=== PATIENT | male | born 1960 | race African-American/Black ===

== ENCOUNTER 2016-10-25 10:06 | Emergency (ER) | payer OTHER, SELFPAY ==
[2016-10-25] MEDS ORDERED: Bacitracin Zinc 1 Packet ONE (10:47)
[2016-10-25] MEDS ORDERED: Sulfameth/Trimethoprim DS 800-160mg TAB ONE (10:49)
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
--- NOTE | 2016-10-25 12:18 | RAD ---
RIGHT THIRD FINGER: Date: 10/25/16 FINDINGS: No fracture or dislocation seen. The joints appear intact. No opaque foreign body was evident. IMPRESSION: No acute findings. POS: H
== END 2016-10-25 11:49 | disposition home or self-care (01) ==
LOC: BURERS 10:06
DX: S60.131A Contusion of right middle finger with damage to nail, initial encounter (principal); L03.011 Cellulitis of right finger; I10 Essential (primary) hypertension; E78.5 Hyperlipidemia, unspecified; E78.00 Pure hypercholesterolemia, unspecified; Z87.891 Personal history of nicotine dependence; W23.0XXA Caught, crushed, jammed, or pinched between moving objects, initial encounter
CPT/HCPCS: 10060

== ENCOUNTER 2017-04-11 09:57 | Emergency (ER) | payer SELFPAY ==
[2017-04-11] MEDS ORDERED: Adacel (T-DAP) 0.5 ML VIAL ONE (10:05)
[2017-04-11] MEDS ORDERED: Bacitracin Zinc 1 Packet ONE ×2 (10:10→10:36)
== END 2017-04-11 10:50 | disposition home or self-care (01) ==
LOC: BURERS 09:57
DX: T24.201A Burn of second degree of unspecified site of right lower limb, except ankle and foot, initial encounter (principal); T24.202A Burn of second degree of unspecified site of left lower limb, except ankle and foot, initial encounter; E78.5 Hyperlipidemia, unspecified; I10 Essential (primary) hypertension; Z87.891 Personal history of nicotine dependence; Z79.899 Other long term (current) drug therapy; X19.XXXA Contact with other heat and hot substances, initial encounter
CPT/HCPCS: 90471; 90715; 96372; J2270

== ENCOUNTER 2017-04-14 13:39 | Emergency (ER) | payer SELFPAY ==
[2017-04-14] MEDS ORDERED: Silver Sulfadiazine 1% Cream 20 GM TUBE ONE (13:55)
== END 2017-04-14 14:22 | disposition home or self-care (01) ==
LOC: BURERS 13:39
DX: T24.201A Burn of second degree of unspecified site of right lower limb, except ankle and foot, initial encounter (principal); T24.202A Burn of second degree of unspecified site of left lower limb, except ankle and foot, initial encounter; T31.0 Burns involving less than 10% of body surface; I10 Essential (primary) hypertension; E78.5 Hyperlipidemia, unspecified; Z87.891 Personal history of nicotine dependence; Z79.899 Other long term (current) drug therapy; X08.8XXA Exposure to other specified smoke, fire and flames, initial encounter
CPT/HCPCS: 99283

== ENCOUNTER 2017-09-23 22:18 | Emergency (ER) | payer SELFPAY ==
[2017-09-23 22:39] LABS: #Basophils 0.2 thou/uL (0.0-0.2); #Eosinphils 0.1 thou/uL (0.0-0.7); #Lymphocytes 2.1 thou/uL (1.20-3.40); #Monocytes 0.6 thou/uL (0.11-0.59); #Neutrophils 4.1 thou/uL (1.40-6.50); %Basophils 2.3 % (0.0-1.0); %Eosinophils 1.3 % (0.0-10.0); %Lymphocytes 30.1 % (21.0-51.0); %Neutrophils 58.3 % (42.0-75.0); Hemoglobin 14.5 g/dL (14.0-18.0); Mean Corpuscular HGB CONC 31.8 g/dL (32.0-36.0); Mean Corpuscular Hemoglobin 27.7 pg (27.0-31.0); Mean Corpuscular Volume 87.2 fl (80.0-94.0); Platelet Count 228 thou/uL (130-400); RBC Distribution Width 11.2 % (11.5-14.5); Red Blood Cell (RBC) Count 5.22 mill/uL (4.70-6.10)
[2017-09-23 22:47] LABS: PTT 30.6 SEC (22.9-36.1); Prothrombin Time 13.1 SEC (12.0-14.7)
[2017-09-23 22:52] LABS: D-Dimer Test Less than 0.27 *mcg/mL (0.27-0.43)
[2017-09-23] MEDS ORDERED: Nitroglycerin 0.4 MG TAB (25 Tab Bottle) ONE (22:52)
[2017-09-23 22:56] LABS: ALT (SGPT) 20 U/L (8-55); AST (SGOT) 19 U/L (5-34); Alkaline Phosphatase 84 U/L (40-150); Anion Gap 13 mmol/L (10-20); BUN (Urea Nitrogen) 11 mg/dL (8.4-25.7); Bilirubin, Total 1.6 mg/dL (0.2-1.2); Calc. Creatinine Clearance 0 mL/min (70-130); Calcium 9.2 mg/dL (7.8-10.44); Carbon Dioxide 25 mmol/L (22-29); Chloride 106 mmol/L (98-107); Estimated GFR-MDRD Greater than 90; Globulin 3.7 g/dL (2.4-3.5); Glucose 109 mg/dL (70-105); Potassium 3.7 mmol/L (3.5-5.1); Protein, Total 7.7 g/dL (6.0-8.3); Sodium 140 mmol/L (136-145)
[2017-09-23 23:25] LABS: CKMB 0.8 ng/mL (0-6.6); Troponin I Less than 0.010 ng/mL (< 0.028)
--- NOTE | 2017-09-23 23:32 | RAD ---
CHEST TWO VIEWS 09/23/17 A film at 2222 is compared with a 10/16/15 study from [facility]. The heart is no different in size than before. There is no congestive change, pleural effusion, or fo betsy pulmonary infiltrate. The mediastinum appears normal and the trachea is midline. IMPRESSION: No acute finding. POS: HOME
== END 2017-09-24 00:27 | disposition left against medical advice (07) ==
LOC: BURERS 22:18
DX: J20.8 Acute bronchitis due to other specified organisms (principal); E78.5 Hyperlipidemia, unspecified; I10 Essential (primary) hypertension; Z87.891 Personal history of nicotine dependence; Z79.899 Other long term (current) drug therapy
CPT/HCPCS: 71020; 80053; 82553; 84484; 85025; 85379; 85610; 85730; 93005; 94760